=== PATIENT | female | born 1975 | race Caucasian/White ===

== ENCOUNTER 2019-03-29 20:53 | Inpatient (IN) ==
--- NOTE | 2019-03-29 21:11 | DR.GENAD ---
HPI Time Seen Time Seen by Provider: 03/29/19 21:05 Complaint/Symptoms Chief Complaint Doctors Comments: A 43 y/o female with increase somnolence, CAST. She has fever and cough. Cough dry and productive at times. There is no chills. Nurses notes reviewed Nurses Notes Review: Yes Source History Provided: Patient and Friend Timing Onset of Chief Complaint: 03/26/19 Came on: Gradually Duration How lon Duration: Days Modifying Factors Worsens:: nothing Improves:: nothing PMH PMH Past Surgical History: Yes Surgical History: Abdominal Surgery, Cholecystectomy and Ortho Surgery Social History Do you use any recreational Drugs:: No ROS Review of Systems Constitutional: Fever and Malaise Eyes: No Symptoms Reported ENTM: No Symptoms Reported Respiratoy: Productive Cough, Non-Productive Cough and Short of Breath Cardiovascular: No Symptoms Reported Gastrointestinal/Abdominal: No Symptoms Reported Genitourinary: No Symptoms Reported Neurological: No Symptoms Reported Musculoskeletal: No Symptoms Reported Integumentary: No Symptoms Reported Hematologic/Lymphatic: No Symptoms Reported Endocrine: No Symptoms Reported Psychiatric: No Symptoms Reported PE Vital Signs Vitals: Temperature 99.8 F Pulse Rate 88 Respiratory Rate 24 Blood Pressure [Right Arm] 119/60 Blood Pressure 118/76 O2 Sat by Pulse Oximetry 99 General Limitations: No Limitations General Appearance: Alert Head Head Exam: Normal Inspection, Atraumatic and Normocephalic Eyes Eye exam: Normal Appearance and EOMI ENT ENT Exam: Normal Exam, Normal Oropharynx, Mucous Membranes Moist and TM's Normal Bilaterally Neck Neck Exam: Normal Inspection, Full ROM and Trachea Midline Chest Chest Inspection: Normal Inspection and Symmetric Chest Wall Rise Respiratory Respiratory Exam: Normal Lung Sounds Bilat Cardiovascular Cardiovascular Exam: Regular Rate, Normal Rhythm, Normal Heart Sounds, +S1 and +S2 Abdominal Exam Abdominal Exam: Normal Inspection, Normal Bowel Sounds and Soft Extremities Extremities Exam: Normal Inspection and Full ROM Back Back Exam: Normal Inspection and Full ROM Neurologic Neurological Exam: Alert and Oriented X3 Psychiatric Psychiatric Exam: Normal Affect and Normal Mood Skin Skin Exam: Dry and Normal Color MDM Differential Diagnosis Differential Diagnosis: Pneumonia; Anemia COURSE Reevaluation 1st: Unchanged Education/Counseling Education/Counseling: Patient, Family, Education and Counseling Educated On: Treatment, Diagnosis, Prognosis and Needs for Follow Up ROR Labs Reviewed Laboratory Results Reviewed?: Yes Result Diagrams: 03/29/19 21:27 03/29/19 21:27 Laboratory: 03/29/19 21:39 Sputum - Expectorated Sputum - Final WBC 10.7 X10^3/uL (3.6-10.0) H 03/29/19 21: RBC 3.80 X10^6/uL (3.5-5.4) 03/29/19 21: Hgb 8.2 g/dL (12.0-16.0) L 03/29/19 21: Hct 26.3 % (36.0-47.0) L 03/29/19 21: MCV 69.2 fL (80.0-100.0) L 03/29/19 21: MCH 21.6 pg (27.0-34.0) L 03/29/19 21: MCHC 31.3 g/dL (33.0-35.0) L 03/29/19 21: RDW 19.4 % (11.6-16.5) H 03/29/19 21: Plt Count 360 X10^3/uL (150.0-450.0) 03/29/19 21: Plt Count Comment Adequate (ADEQUATE) 03/29/19 21: MPV 7.1 fL (7.4-11.0) L 03/29/19 21: Neut % (Auto) 79.4 % (42.0-75.0) H 03/29/19 21: Lymph % (Auto) 11.2 % (21.0-51.0) L 03/29/19 21: [place] % (Auto) 8.1 % (0.0-13.0) 03/29/19 21: Eos % (Auto) 0.7 % (0.9-2.9) L 03/29/19 21: Baso % (Auto) 0.6 % (0.2-1.0) 03/29/19 21: Neut # (Auto) 8.5 x10^3/uL (2.2-4.8) H 03/29/19 21: Lymph # (Auto) 1.2 X10^3/uL (1.3-2.9) L 03/29/19 21:27 [place] # (Auto) 0.9 x10^3/uL (0.3-0.8) H 03/29/19 21:27 Eos # (Auto) 0.1 x10^3/uL (0.0-0.2) 03/29/19 21:27 Baso # (Auto) 0.1 X10^3/uL (0.0-0.1) 03/29/19 21:27 Absolute Nucleated RBC 0.2 /100WBC 03/29/19 21:27 Plt Morphology Comment Normal (NORMAL) 03/29/19 21:27 RBC Morphology Abnormal (NORMAL) A 03/29/19 21:27 Hypochromasia 2+ A 03/29/19 21: Anisocytosis Slight A 03/29/19 21: Microcytosis 1+ A 03/29/19 21:27 Sample Site Rra 03/29/19 21:15 ABG pH 7.440 (7.35-7.45) 03/29/19 21:15 ABG pCO2 49.0 mmHg (35.0-45.0) H 03/29/19 21:15 ABG pO2 35.0 mmHg (80.0-100.0) L* 03/29/19 21:15 ABG HCO3 33.3 mmol/L (22-26) H* 03/29/19 21:15 ABG O2 Saturation 70.0 % (90-100) L* 03/29/19 21:15 ABG Base Excess 7.9 mmol/L (-2.0-2.0) H 03/29/19 21:15 Ramon Test Pos 03/29/19 21:15 A-a Gradient 53.0 mmHg 03/29/19 21:15 FiO2 21.0 03/29/19 21:15 Blood Gas Comments Pt toll well eb 03/29/19 21:15 Sodium 140 mmol/L (136-145) 03/29/19 21:27 Corrected Sodium 141 mmol/L (136-145) 03/29/19 21:27 Potassium 3.3 mmol/L (3.5-5.1) L 03/29/19 21:27 Chloride 101 mmol/L (98-107) 03/29/19 21:27 Carbon Dioxide 30.1 mmol/L (21-32) 03/29/19 21:27 BUN 12 mg/dL (7-18) 03/29/19 21:27 Creatinine 0.72 mg/dL (0.55-1.02) 03/29/19 21:27 Est GFR (MDRD) Af Amer > 60 (>60) 03/29/19 21:27 Est GFR (MDRD) Non-Af > 60 (>60) 03/29/19 21:27 Glucose 140 mg/dL (65-99) H 03/29/19 21:27 Calcium 7.9 mg/dL (8.5-10.1) L 03/29/19 21:27 Corrected Calcium 8.9 mg/dL (8.5-10.1) 03/29/19 21:27 Total Bilirubin 0.90 mg/dL (0.2-1.0) 03/29/19 21:27 AST 49 Units/L (15-37) H 03/29/19 21:27 ALT 32 Units/L (12-78) 03/29/19 21:27 Alkaline Phosphatase 134 Units/L (46-116) H 03/29/19 21:27 Total Protein 7.2 g/dL (6.4-8.2) 03/29/19 21:27 Albumin 2.8 g/dL (3.4-5.0) L 03/29/19 21:27 Globulin 4.4 g/dL (2.5-4.5) 03/29/19 21:27 Albumin/Globulin Ratio 0.6 Ratio (1.1-2.1) L 03/29/19 21:27 Influenza Type A (PCR) Negative (NEGATIVE) 03/29/19 21:22 Influenza Type B (PCR) Negative (NEGATIVE) 03/29/19 21:22 S. pyogenes (TEM-PCR) Not detected (NOT DETECT) 03/29/19 21:22 XRAY XRAY Interpreted by: Self XRAY Findings: b/l diffuse infiltrates Opioid Opioid Risk Tool Total: 0 Total Score Risk Category: Low Risk Copyright: Jonathon DESIR predicting aberrant behaviors Diagnosis Discharge Problem: Anemia, normocytic normochromic, Acute hypokalemia Pneumonia Qualifiers: Pneumonia type: due to unspecified organism Laterality: bilateral Lung location: unspecified part of lung Qualified Code(s): J18.9 - Pneumonia, unspecified organism Instructions Forms: Excuse From Work
[2019-03-29 21:18] LABS: ABG BASE EXCESS 7.9 mmol/L (-2.0-2.0)
[2019-03-29 21:19] LABS: ABG HCO3 33.3 mmol/L (22-26)
[2019-03-29 21:20] LABS: ABG ALLEN TEST POS
[2019-03-29] MEDS ORDERED: DUONEB 0.5 MG/3 MG ONE (21:27)
[2019-03-29] MEDS ORDERED: DUONEB 0.5 MG/3 MG NEB ONE (21:27)
[2019-03-29 21:39] LABS: BASOPHILS # (AUTO) 0.1 X10^3/uL (0.0-0.1); BASOPHILS % (AUTO) 0.6 % (0.2-1.0); EOSINOPHILS # (AUTO) 0.1 x10^3/uL (0.0-0.2); EOSINOPHILS % (AUTO) 0.7 % (0.9-2.9); HEMATOCRIT 26.3 % (36.0-47.0); HEMOGLOBIN 8.2 g/dL (12.0-16.0); LYMPHOCYTES # (AUTO) 1.2 X10^3/uL (1.3-2.9); LYMPHOCYTES % (AUTO) 11.2 % (21.0-51.0); MEAN CORPUSCULAR HEMOGLOBIN 21.6 pg (27.0-34.0); MEAN CORPUSCULAR HGB CONC 31.3 g/dL (33.0-35.0); MEAN CORPUSCULAR VOLUME 69.2 fL (80.0-100.0); MEAN PLATELET VOLUME 7.1 fL (7.4-11.0); MONOCYTES # (AUTO) 0.9 x10^3/uL (0.3-0.8); MONOCYTES % (AUTO) 8.1 % (0.0-13.0); NEUTROPHILS # (AUTO) 8.5 x10^3/uL (2.2-4.8); NEUTROPHILS % (AUTO) 79.4 % (42.0-75.0); PLATELET COUNT 360 X10^3/uL (150.0-450.0); RED CELL DISTRIBUTION WIDTH 19.4 % (11.6-16.5); WHITE BLOOD COUNT 10.7 X10^3/uL (3.6-10.0)
--- NOTE | 2019-03-29 21:48 | RAD ---
AP chest. Indication: Sick Comparison: None available Findings: There is severe multifocal airspace opacities and peribronchial thickening bilaterally. No pleural effusion or pneumothorax. Heart size is mildly enlarged. No acute osseous abnormality. Impression: Severe airspace opacities and peribronchial thickening within both lungs is most consistent with multifocal pneumonia. Reported By:
[2019-03-29 21:51] LABS: ALANINE AMINOTRANSFERASE 32 Units/L (12-78); ALBUMIN 2.8 g/dL (3.4-5.0); ALKALINE PHOSPHATASE 134 Units/L (46-116); ASPARTATE AMINO TRANSFERASE 49 Units/L (15-37); BLOOD UREA NITROGEN 12 mg/dL (7-18); CALCIUM 7.9 mg/dL (8.5-10.1); CARBON DIOXIDE 30.1 mmol/L (21-32); CHLORIDE 101 mmol/L (98-107); COR CA(FOR HYPOALB) 8.9 mg/dL (8.5-10.1); COR NA(FOR HYPERGLY) 141 mmol/L (136-145); CREATININE 0.72 mg/dL (0.55-1.02); SODIUM 140 mmol/L (136-145); TOTAL PROTEIN 7.2 g/dL (6.4-8.2); eGFR NON BLACK RACES > 60 (>60)
[2019-03-29 22:03] LABS: STREP A BY PCR NOT DETECTED (NOT DETECT)
[2019-03-29 22:03] LABS: ANISOCYTOSIS SLIGHT; HYPOCHROMASIA 2+; MICROCYTOSIS 1+; PLATELET MORPHOLOGY COMMENT NORMAL (NORMAL)
[2019-03-29] MEDS ORDERED: K-DUR TAB 20 MEQ PO ONE ×2 (22:11→22:43)
[2019-03-29] MEDS ORDERED: ZOSYN VIAL 3.375 GRAMS IV ONE ×2 (22:17→22:41)
[2019-03-29] MEDS ORDERED: NS 100 ML IV + SPIKE MINIBAG* 100 ML IV ONE (22:41)
[2019-03-29] MEDS ORDERED: NS 1000 ML 1,000 ML ONE (22:43)
[2019-03-29] MEDS: NS 1000 ML 1,000 ML IV SCH (23:09)
[2019-03-30 00:42] LABS: BILIRUBIN,URINE 1+ (NEGATIVE); BLOOD/HEMOGLOBIN,URINE 4+ (NEGATIVE); GLUCOSE, URINE NEGATIVE (NEGATIVE); KETONES,URINE 1+ (NEGATIVE); LEUKOCYTE ESTERASE ,URINE 1+ (NEGATIVE); NITRITES,URINE NEGATIVE (NEGATIVE); PROTEIN,URINE 3+ (NEGATIVE); UROBILINOGEN,URINE 4+ (NORMAL)
[2019-03-30 00:47] LABS: APPEARANCE,URINE CLEAR (CLEAR); COLOR,URINE AMBER (YELLOW)
[2019-03-30 00:48] LABS: BACTERIA,URINE NEGATIVE /HPF (NEGATIVE); SQUAMOUS EPITHELIAL CELL,UR FEW /HPF (NEGATIVE)
[2019-03-30] MEDS: TUSSIONEX PENNKINETIC SUSP PO PRN (01:01)
[2019-03-30 01:02] VITALS: BMI 29.9
[2019-03-30] MEDS: DUONEB 0.5 MG/3 MG NEB SCH ×5 (01:55→18:17)
[2019-03-30] MEDS ORDERED: NS 100 ML IV 100 ML IV ONE (05:58)
[2019-03-30] MEDS ORDERED: ZOSYN VIAL 4.5 GRAMS IV SCH (06:00)
[2019-03-30 06:02] LABS: BASOPHILS # (AUTO) 0.1 X10^3/uL (0.0-0.1); BASOPHILS % (AUTO) 0.5 % (0.2-1.0); EOSINOPHILS % (AUTO) 0.4 % (0.9-2.9); HEMATOCRIT 24.6 % (36.0-47.0); HEMOGLOBIN 7.5 g/dL (12.0-16.0); LYMPHOCYTES % (AUTO) 16.8 % (21.0-51.0); MEAN CORPUSCULAR HEMOGLOBIN 21.4 pg (27.0-34.0); MEAN CORPUSCULAR HGB CONC 30.7 g/dL (33.0-35.0); MEAN CORPUSCULAR VOLUME 69.8 fL (80.0-100.0); MEAN PLATELET VOLUME 7.1 fL (7.4-11.0); MONOCYTES # (AUTO) 1.5 x10^3/uL (0.3-0.8); MONOCYTES % (AUTO) 12.4 % (0.0-13.0); NEUTROPHILS # (AUTO) 8.5 x10^3/uL (2.2-4.8); NEUTROPHILS % (AUTO) 69.9 % (42.0-75.0); PLATELET COUNT 306 X10^3/uL (150.0-450.0); RED BLOOD COUNT 3.52 X10^6/uL (3.5-5.4); RED CELL DISTRIBUTION WIDTH 19.4 % (11.6-16.5); WHITE BLOOD COUNT 12.1 X10^3/uL (3.6-10.0)
[2019-03-30 06:12] LABS: ALANINE AMINOTRANSFERASE 32 Units/L (12-78); ALBUMIN 2.5 g/dL (3.4-5.0); ALKALINE PHOSPHATASE 122 Units/L (46-116); ASPARTATE AMINO TRANSFERASE 47 Units/L (15-37); BLOOD UREA NITROGEN 9 mg/dL (7-18); CALCIUM 7.7 mg/dL (8.5-10.1); CARBON DIOXIDE 29.8 mmol/L (21-32); CHLORIDE 103 mmol/L (98-107); COR CA(FOR HYPOALB) 8.9 mg/dL (8.5-10.1); CREATININE 0.63 mg/dL (0.55-1.02); SODIUM 139 mmol/L (136-145); TOTAL PROTEIN 6.7 g/dL (6.4-8.2); eGFR NON BLACK RACES > 60 (>60)
[2019-03-30] MEDS: NS 1000 ML 1,000 ML IV SCH ×3 (06:21→22:32)
[2019-03-30 06:37] LABS: ANISOCYTOSIS 1+; HYPOCHROMASIA 2+; MICROCYTOSIS 1+; PLATELET MORPHOLOGY COMMENT NORMAL (NORMAL)
[2019-03-30] MEDS ORDERED: MICRO K EXTEN CAP 10 MEQ PO PRN (06:41)
[2019-03-30] MEDS ORDERED: KLOR-CON PO PRN (06:41)
[2019-03-30] MEDS ORDERED: POTASSIUM CHLORIDE LIQ 20 MEQ UDC PO PRN (06:41)
[2019-03-30] MEDS ORDERED: POTASSIUM CHL 40 MEQ/NS 0.45% 500 ML IV PRN (06:41)
[2019-03-30] MEDS ORDERED: POTASSIUM CHL 60 MEQ/NS 0.45% 500 ML IV PRN (06:41)
[2019-03-30] MEDS ORDERED: K-RIDER 10 MEQ/NS 100 ML 10 MEQ/100 ML BAG IV PRN (06:41)
--- NOTE | 2019-03-30 08:33 | DR.H&P ---
H&P History & Physical for Day of: H&P Date: 03/30/19 Chief Complaint Chief Complaint: Shortness of breath Allergies Allergies Allergy/AdvReac Type Severity Reaction Status Date / Time No Known Drug Allergies Allergy Verified 12/15/18 11:43 History of Present Illness History of Present Illness: Pt is 43 yo f w/ no pmhx c/o fever, chills, shortness of breath, fatigue, night sweats x 4 days. She states that she has been feeling weak since being ill. She denies any ill contacts. She reports loss of appetite while being ill and headache. She has been taking Dayquil and Nyquil without relief. Denies abdominal pain, diarrhea. She went to work yesterday and when she got home was told by her significant other that she looked pale so she went to ED. Denies hx of GI bleed. Patient was found to be extremely hypoxic on arrival, ABG pO2 Past Medical History Past Medical History: denies Alzheimers, Anemia, Angina, Anxiety, Arthritis, Asthma, Cirrhosis, CHF, COPD, Coronary Artery Disease, CVA, Dementia, Depression, Diabetes, Dialysis, Dyslipidemia, Migraines, GERD, Gout, Headaches, Hypertension, Hyperthyroidism, Hypothyroidism, Kidney Stones, Liver Disease, LA, PUD, Renal Disease, Schizophrenia, Seizures, Sleep Apnea, SVT and Ventricular Tachycardia Past Surgical History Surgical History: Abdominal Surgery, Cholecystectomy and Ortho Surgery Family History Family Medical History: Cancer and Hypertension Social History Does patient currently use any type of tobacco product: Yes Have you used tobacco products in the last 12 months: Yes Type of Tobacco Use: Cigarettes Alcohol Use: None Drug Use: None Medications Home Medications: No Known Drug Allergies Allergy (Verified 12/15/18 11:43) CONTINUE taking the following medications NK 03/30/19 [History] Review of Systems Constitutional: Fever, Chills, Sweats and Weakness Eyes: No Symptoms Reported ENT: Nose Congestion Respiratory: Cough, Shortness of Breath, Sputum and Wheezing Cardiovascular: Light Headedness; denies No Symptoms Reported, Chest Pain, See HPI, Palpitations, Orthopnea, Paroxysmal Noc. Dyspnea, Edema and Other Gastrointestinal: Nausea; denies No Symptoms Reported, See HPI, Vomiting, Abdominal Pain, Diarrhea, Constipation, Melena, Hematochezia and Other Genitourinary: No Symptoms Reported Musculoskeletal: No Symptoms Reported Skin: No Symptoms Reported Neurological: No Symptoms Reported Physical Exam Vital Signs: Temperature 98.6 F Pulse Rate [Apical] 82 Pulse Rate 81 Respiratory Rate 20 Blood Pressure [Right Arm] 102/58 Blood Pressure 131/68 O2 Sat by Pulse Oximetry 92 Oriented: Normal Eyes: Normal Ear: Normal Nose: Normal Throat: Normal Respiratory: Rhonchi Throughout and Wheezes Throughout Cardiovascular: Normal; negative Tachycardia, Bradycardia, Irregular, S3, S4, Systolic, Diastolic, Murmur, Edema and Other : Normal Auscultation: Bowel Sounds: Normal Palpation: Normal Tenderness: Normal Skin: Normal Musculoskeletal: Normal Psychiatric: Normal Mood Description: Appropriate Affect: Normal Speech Pattern: Appropriate Assessment/Plan (1) Acute respiratory failure with hypoxia: Status: Acute (2) Multifocal pneumonia: Status: Acute Plan: continue Levaquin, Zosyn add Vancomycin for MRSA coverage follow sputum cultures - repeat CXR this AM - Duonebs , IS - titrate O2 as needed to keep sats > 92% (3) Anemia, normocytic normochromic: Status: Acute Plan: monitor CBC and signs of bleeding anemia panel FOBT (4) Acute hypokalemia: Status: Acute Plan: daily BMP replace as needed (5) Compensated metabolic alkalosis: Status: Acute
[2019-03-30] MEDS: LOVENOX INJ 40 MG SYR SC SCH (08:55)
[2019-03-30] MEDS: VSL#3 PO SCH (08:56)
[2019-03-30] MEDS: ROBITUSSIN DM PO SCH ×4 (08:56→21:14)
[2019-03-30] MEDS ORDERED: LEVAQUIN PREMIX IV 750 MG 750 MG/150 ML BAG IV SCH (09:00)
[2019-03-30] MEDS ORDERED: PHARMACY CONSULT - VANCOMYCIN XX SCH (09:00)
[2019-03-30 10:05] LABS: MYCOPLASMA PNEUMONIAE IGM AB NEGATIVE (NEGATIVE)
[2019-03-30] MEDS: TYLENOL 325 MG TAB PO PRN ×2 (10:25→22:49)
[2019-03-30] MEDS: HEMOCYTE-PLUS PO SCH (10:38)
[2019-03-30] MEDS: VANCOMYCIN HCL 1 G in NS 250 ML IV 250 ML IV SCH ×2 (13:28→21:15)
[2019-03-30] MEDS: ZOSYN VIAL 4.5 GRAMS 4.5 G in NS 100 ML IV + SPIKE MINIBAG* 100 ML IV SCH ×2 (13:31→22:32)
--- NOTE | 2019-03-30 14:07 | RAD ---
HISTORY: Shortness of breath Study: Two-view chest Comparison: 03/29/2019 Findings: The trachea is midline. The cardiac silhouette is accentuated by portable technique. Diffuse airspace opacities throughout the right and left hemithorax are observed. Slightly improved aeration is observed consistent with resolving multifocal pneumonia. The bony thorax is unremarkable. IMPRESSION: Persistent airspace opacities throughout the right and left hemithorax with improved aeration consistent with resolving bronchopneumonia. Reported By:
[2019-03-30] MEDS ORDERED: K-DUR TAB 20 MEQ PO ONE (22:11)
[2019-03-30] MEDS ORDERED: ZOSYN VIAL 3.375 GRAMS IV ONE (22:17)
[2019-03-31] MEDS: DUONEB 0.5 MG/3 MG NEB PRN ×6 (00:48→21:40)
[2019-03-31] MEDS: VANCOMYCIN HCL 1 G in NS 250 ML IV 250 ML IV SCH ×3 (05:32→21:01)
[2019-03-31] MEDS: NS 1000 ML 1,000 ML IV SCH (06:27)
[2019-03-31] MEDS: ZOSYN VIAL 4.5 GRAMS 4.5 G in NS 100 ML IV + SPIKE MINIBAG* 100 ML IV SCH ×3 (06:29→21:01)
[2019-03-31 06:30] LABS: BASOPHILS % (AUTO) 0.5 % (0.2-1.0); BLOOD UREA NITROGEN 7 mg/dL (7-18); CALCIUM 7.7 mg/dL (8.5-10.1); CHLORIDE 106 mmol/L (98-107); CREATININE 0.51 mg/dL (0.55-1.02); EOSINOPHILS # (AUTO) 0.2 x10^3/uL (0.0-0.2); EOSINOPHILS % (AUTO) 2.3 % (0.9-2.9); HEMATOCRIT 22.8 % (36.0-47.0); HEMOGLOBIN 7.2 g/dL (12.0-16.0); LYMPHOCYTES # (AUTO) 1.8 X10^3/uL (1.3-2.9); LYMPHOCYTES % (AUTO) 21.1 % (21.0-51.0); MEAN CORPUSCULAR HEMOGLOBIN 21.8 pg (27.0-34.0); MEAN CORPUSCULAR HGB CONC 31.4 g/dL (33.0-35.0); MEAN CORPUSCULAR VOLUME 69.5 fL (80.0-100.0); MEAN PLATELET VOLUME 7.2 fL (7.4-11.0); MONOCYTES # (AUTO) 0.9 x10^3/uL (0.3-0.8); MONOCYTES % (AUTO) 10.9 % (0.0-13.0); NEUTROPHILS # (AUTO) 5.5 x10^3/uL (2.2-4.8); NEUTROPHILS % (AUTO) 65.2 % (42.0-75.0); PLATELET COUNT 294 X10^3/uL (150.0-450.0); RED BLOOD COUNT 3.28 X10^6/uL (3.5-5.4); RED CELL DISTRIBUTION WIDTH 19.1 % (11.6-16.5); SODIUM 142 mmol/L (136-145); WHITE BLOOD COUNT 8.4 X10^3/uL (3.6-10.0); eGFR NON BLACK RACES > 60 (>60)
--- NOTE | 2019-03-31 06:38 | RAD ---
Examination: Portable AP chest History: SOB Comparison 03/30/2019 Findings: Continued cardiomegaly with bilateral infiltrates. There is no additional consolidation, extrapulmonary air or developing pleural effusion. Impression: Stable pulmonary infiltrates, no interval change since 1 day prior. Reported By:
[2019-03-31 06:40] LABS: ANISOCYTOSIS SLIGHT; HYPOCHROMASIA 2+; MICROCYTOSIS 1+; PLATELET MORPHOLOGY COMMENT NORMAL (NORMAL)
[2019-03-31] MEDS: K-DUR TAB 20 MEQ PO PRN ×2 (06:55→14:58)
--- NOTE | 2019-03-31 07:52 | PCM.PROG ---
Progress Note Past Medical Family Social History Allergies: Allergies No Known Drug Allergies Allergy (Verified 12/15/18 11:43) Vital Signs and I&O's Vital Signs: Temperature 98.8 F Pulse Rate [Apical] 73 Pulse Rate 90 Respiratory Rate 18 Blood Pressure [Right Arm] 109/56 Blood Pressure 131/68 O2 Sat by Pulse Oximetry 92 Intake and Output: Intake & Output 03/28/19 03/29/19 03/30/19 03/31/19 23:59 23:59 23:59 23:59 Intake Total 2500 / 2500 720 / 720 Balance 2500 / 2500 720 / 720 Physical Exam Oriented: Normal Eyes: Normal Ear: Normal Nose: Normal Throat: Normal Cardiovascular: Normal; negative Tachycardia, Bradycardia, Irregular, S3, S4, Systolic, Diastolic, Murmur, Edema and Other : Normal Auscultation: Bowel Sounds: Normal Tenderness: Normal Skin: Normal Musculoskeletal: Normal Psychiatric: Normal Mood Description: Appropriate Affect: Normal Speech Pattern: Clear and Appropriate Laboratory and Diagnostics Result Diagrams: 03/31/19 06:00 03/31/19 06:00 Labs: 03/29/19 21:39 Sputum - Expectorated Sputum - Final Laboratory WBC 8.4 X10^3/uL (3.6-10.0) 03/31/19 06:00 RBC 3.28 X10^6/uL (3.5-5.4) L 03/31/19 06:00 Hgb 7.2 g/dL (12.0-16.0) L 03/31/19 06:00 Hct 22.8 % (36.0-47.0) L 03/31/19 06:00 MCV 69.5 fL (80.0-100.0) L 03/31/19 06:00 MCH 21.8 pg (27.0-34.0) L 03/31/19 06:00 MCHC 31.4 g/dL (33.0-35.0) L 03/31/19 06:00 RDW 19.1 % (11.6-16.5) H 03/31/19 06:00 Plt Count 294 X10^3/uL (150.0-450.0) 03/31/19 06:00 Plt Count Comment Adequate (ADEQUATE) 03/31/19 06:00 MPV 7.2 fL (7.4-11.0) L 03/31/19 06:00 Neut % (Auto) 65.2 % (42.0-75.0) 03/31/19 06:00 Lymph % (Auto) 21.1 % (21.0-51.0) 03/31/19 06:00 [place] % (Auto) 10.9 % (0.0-13.0) 03/31/19 06:00 Eos % (Auto) 2.3 % (0.9-2.9) 03/31/19 06:00 Baso % (Auto) 0.5 % (0.2-1.0) 03/31/19 06:00 Neut # (Auto) 5.5 x10^3/uL (2.2-4.8) H 03/31/19 06:00 Lymph # (Auto) 1.8 X10^3/uL (1.3-2.9) 03/31/19 06:00 [place] # (Auto) 0.9 x10^3/uL (0.3-0.8) H 03/31/19 06:00 Eos # (Auto) 0.2 x10^3/uL (0.0-0.2) 03/31/19 06:00 Baso # (Auto) 0.0 X10^3/uL (0.0-0.1) 03/31/19 06:00 Absolute Nucleated RBC 0.1 /100WBC 03/31/19 06:00 Plt Morphology Comment Normal (NORMAL) 03/31/19 06:00 RBC Morphology Abnormal (NORMAL) A 03/31/19 06:00 Hypochromasia 2+ A 03/31/19 06:00 Anisocytosis Slight A 03/31/19 06:00 Microcytosis 1+ A 03/31/19 06:00 Sample Site Rra 03/29/19 21:15 ABG pH 7.440 (7.35-7.45) 03/29/19 21:15 ABG pCO2 49.0 mmHg (35.0-45.0) H 03/29/19 21:15 ABG pO2 35.0 mmHg (80.0-100.0) L* 03/29/19 21:15 ABG HCO3 33.3 mmol/L (22-26) H* 03/29/19 21:15 ABG O2 Saturation 70.0 % (90-100) L* 03/29/19 21:15 ABG Base Excess 7.9 mmol/L (-2.0-2.0) H 03/29/19 21:15 Ramon Test Pos 03/29/19 21:15 A-a Gradient 53.0 mmHg 03/29/19 21:15 FiO2 21.0 03/29/19 21:15 Blood Gas Comments Pt toll well eb 03/29/19 21:15 Sodium 142 mmol/L (136-145) 03/31/19 06:00 Corrected Sodium TNP 03/31/19 06:00 Potassium 3.4 mmol/L (3.5-5.1) L 03/31/19 06:00 Chloride 106 mmol/L (98-107) 03/31/19 06:00 Carbon Dioxide 30.0 mmol/L (21-32) 03/31/19 06:00 BUN 7 mg/dL (7-18) 03/31/19 06:00 Creatinine 0.51 mg/dL (0.55-1.02) L 03/31/19 06:00 Est GFR (MDRD) Af Amer > 60 (>60) 03/31/19 06:00 Est GFR (MDRD) Non-Af > 60 (>60) 03/31/19 06:00 Glucose 99 mg/dL (65-99) 03/31/19 06:00 Calcium 7.7 mg/dL (8.5-10.1) L 03/31/19 06:00 Corrected Calcium 8.9 mg/dL (8.5-10.1) 03/30/19 05:35 Iron 9 ug/dL (50-175) L 03/30/19 05:35 Transferrin 239 mg/dL (202-364) 03/30/19 05:35 Ferritin 103 ng/mL (8-252) 03/30/19 05:35 Total Bilirubin 0.80 mg/dL (0.2-1.0) 03/30/19 05:35 AST 47 Units/L (15-37) H 03/30/19 05:35 ALT 32 Units/L (12-78) 03/30/19 05:35 Alkaline Phosphatase 122 Units/L (46-116) H 03/30/19 05:35 Total Protein 6.7 g/dL (6.4-8.2) 03/30/19 05:35 Albumin 2.5 g/dL (3.4-5.0) L 03/30/19 05:35 Globulin 4.2 g/dL (2.5-4.5) 03/30/19 05:35 Albumin/Globulin Ratio 0.6 Ratio (1.1-2.1) L 03/30/19 05:35 Vitamin B12 316 pg/mL (193-986) 03/30/19 05:35 Folate 8.6 ng/mL (>8.6) 03/30/19 05:35 Specimen Type Clean catch urine 03/30/19 00:31 Urine Color [place]iela (YELLOW) 03/30/19 00:31 Urine Appearance Clear (CLEAR) 03/30/19 00:31 Urine pH 6.0 (5.0 - 8.0) 03/30/19 00:31 Ur Specific [place] 1.010 (1.000-1.030) 03/30/19 00:31 Urine Protein 3+ (NEGATIVE) 03/30/19 00:31 Urine Glucose (UA) Negative (NEGATIVE) 03/30/19 00: Urine Ketones 1+ (NEGATIVE) 03/30/19 00:31 Urine Occult Blood 4+ (NEGATIVE) 03/30/19 00: Urine Nitrite Negative (NEGATIVE) 03/30/19 00: Urine Bilirubin 1+ (NEGATIVE) 03/30/19 00:31 Urine Urobilinogen 4+ (NORMAL) 03/30/19 00:31 Ur Leukocyte Esterase 1+ (NEGATIVE) 03/30/19 00:31 Urine RBC 5-10 /HPF (0-3) A 03/30/19 00:31 Urine WBC 0-2 /HPF (0-5) 03/30/19 00:31 Ur Squamous Epith Cells Few /HPF (NEGATIVE) 03/30/19 00:31 Urine Bacteria Negative /HPF (NEGATIVE) 03/30/19 00:31 Ur Culture Indicated? No/not indicated 03/30/19 00:31 Influenza Type A (PCR) Negative (NEGATIVE) 03/29/19 21:22 Influenza Type B (PCR) Negative (NEGATIVE) 03/29/19 21:22 Mycoplasma pneumon IgG Negative (NEGATIVE) 03/30/19 05:35 S. pyogenes (TEM-PCR) Not detected (NOT DETECT) 03/29/19 21:22 Plan (1) Acute respiratory failure with hypoxia: Status: Acute (2) Multifocal pneumonia: Status: Acute Plan: continue Abx:Levaquin, Zosyn, Vancomycin(for MRSA coverage)(03/30) - Sputum Cx pending - CXR(03/30) - Duonebs , IS - titrate O2 as needed to keep sats > 92% (3) Anemia, normocytic normochromic: Status: Acute Plan: monitor CBC and signs of bleeding anemia panel FOBT (4) Acute hypokalemia: Status: Acute Plan: daily BMP replace as needed (5) Compensated metabolic alkalosis: Status: Acute
[2019-03-31] MEDS ORDERED: MILK OF MAGNESIA PO PRN (07:58)
[2019-03-31] MEDS: ROBITUSSIN DM PO SCH ×4 (09:19→20:53)
[2019-03-31] MEDS: VSL#3 PO SCH (09:19)
[2019-03-31] MEDS: COLACE CAP 100 MG PO SCH ×2 (09:19→20:53)
[2019-03-31] MEDS: LOVENOX INJ 40 MG SYR SC SCH (09:20)
[2019-03-31] MEDS: HEMOCYTE-PLUS PO SCH (09:20)
--- NOTE | 2019-03-31 11:39 | PCM.PROG ---
Progress Note Progress Note for Day of Date of Exam: 03/31/19 Subjective Subjective: Pt feeling a little better this morning. She says she is still coughing up sputum. Her appetite is gradually improving. No acute events overnight. Past Medical Family Social History Past Med/Fam/Surg Hx: No changes since H&P Allergies: Allergies No Known Drug Allergies Allergy (Verified 12/15/18 11:43) Review of Systems ROS: No change since H&P Vital Signs and I&O's Vital Signs: Temperature 98.2 F Pulse Rate [Apical] 88 Pulse Rate 91 Respiratory Rate 18 Blood Pressure [Right Arm] 109/59 Blood Pressure 131/68 O2 Sat by Pulse Oximetry 96 Intake and Output: Intake & Output 03/28/19 03/29/19 03/30/19 03/31/19 23:59 23:59 23:59 23:59 Intake Total 2500 / 2500 720 / 720 Balance 2500 / 2500 720 / 720 Physical Exam Oriented: Normal Eyes: Normal Ear: Normal Nose: Normal Respiratory: Wheezes and Rhonchi Cardiovascular: Normal; negative Tachycardia, Bradycardia, Irregular, S3, S4, Systolic, Diastolic, Murmur, Edema and Other Auscultation: Bowel Sounds: Normal Tenderness: Normal Skin: Normal Musculoskeletal: Normal Psychiatric: Normal Mood Description: Appropriate Affect: Normal Speech Pattern: Clear and Appropriate Laboratory and Diagnostics Result Diagrams: 03/31/19 06:00 03/31/19 10:54 Labs: 03/29/19 21:27 Blood Blood Culture - Preliminary 03/29/19 21:20 Blood Blood Culture - Preliminary 03/29/19 21:39 Sputum - Expectorated Sputum Sputum Culture - Preliminary 03/29/19 21:39 Sputum - Expectorated Sputum - Final Laboratory WBC 8.4 X10^3/uL (3.6-10.0) 03/31/19 06:00 RBC 3.28 X10^6/uL (3.5-5.4) L 03/31/19 06:00 Hgb 7.2 g/dL (12.0-16.0) L 03/31/19 06:00 Hct 22.8 % (36.0-47.0) L 03/31/19 06:00 MCV 69.5 fL (80.0-100.0) L 03/31/19 06:00 MCH 21.8 pg (27.0-34.0) L 03/31/19 06:00 MCHC 31.4 g/dL (33.0-35.0) L 03/31/19 06:00 RDW 19.1 % (11.6-16.5) H 03/31/19 06:00 Plt Count 294 X10^3/uL (150.0-450.0) 03/31/19 06:00 Plt Count Comment Adequate (ADEQUATE) 03/31/19 06:00 MPV 7.2 fL (7.4-11.0) L 03/31/19 06:00 Neut % (Auto) 65.2 % (42.0-75.0) 03/31/19 06:00 Lymph % (Auto) 21.1 % (21.0-51.0) 03/31/19 06:00 [place] % (Auto) 10.9 % (0.0-13.0) 03/31/19 06:00 Eos % (Auto) 2.3 % (0.9-2.9) 03/31/19 06:00 Baso % (Auto) 0.5 % (0.2-1.0) 03/31/19 06:00 Neut # (Auto) 5.5 x10^3/uL (2.2-4.8) H 03/31/19 06:00 Lymph # (Auto) 1.8 X10^3/uL (1.3-2.9) 03/31/19 06:00 [place] # (Auto) 0.9 x10^3/uL (0.3-0.8) H 03/31/19 06:00 Eos # (Auto) 0.2 x10^3/uL (0.0-0.2) 03/31/19 06:00 Baso # (Auto) 0.0 X10^3/uL (0.0-0.1) 03/31/19 06:00 Absolute Nucleated RBC 0.1 /100WBC 03/31/19 06:00 Plt Morphology Comment Normal (NORMAL) 03/31/19 06:00 RBC Morphology Abnormal (NORMAL) A 03/31/19 06:00 Hypochromasia 2+ A 03/31/19 06:00 Anisocytosis Slight A 03/31/19 06:00 Microcytosis 1+ A 03/31/19 06:00 Sample Site Rra 03/29/19 21:15 ABG pH 7.440 (7.35-7.45) 03/29/19 21:15 ABG pCO2 49.0 mmHg (35.0-45.0) H 03/29/19 21:15 ABG pO2 35.0 mmHg (80.0-100.0) L* 03/29/19 21:15 ABG HCO3 33.3 mmol/L (22-26) H* 03/29/19 21:15 ABG O2 Saturation 70.0 % (90-100) L* 03/29/19 21:15 ABG Base Excess 7.9 mmol/L (-2.0-2.0) H 03/29/19 21:15 Ramon Test Pos 03/29/19 21:15 A-a Gradient 53.0 mmHg 03/29/19 21:15 FiO2 21.0 03/29/19 21:15 Blood Gas Comments Pt toll well eb 03/29/19 21:15 Sodium 142 mmol/L (136-145) 03/31/19 06:00 Corrected Sodium TNP 03/31/19 06:00 Potassium 3.6 mmol/L (3.5-5.1) 03/31/19 10:54 Chloride 106 mmol/L (98-107) 03/31/19 06:00 Carbon Dioxide 30.0 mmol/L (21-32) 03/31/19 06:00 BUN 7 mg/dL (7-18) 03/31/19 06:00 Creatinine 0.51 mg/dL (0.55-1.02) L 03/31/19 06:00 Est GFR (MDRD) Af Amer > 60 (>60) 03/31/19 06:00 Est GFR (MDRD) Non-Af > 60 (>60) 03/31/19 06:00 Glucose 99 mg/dL (65-99) 03/31/19 06:00 Calcium 7.7 mg/dL (8.5-10.1) L 03/31/19 06:00 Corrected Calcium 8.9 mg/dL (8.5-10.1) 03/30/19 05:35 Iron 9 ug/dL (50-175) L 03/30/19 05:35 Transferrin 239 mg/dL (202-364) 03/30/19 05:35 Ferritin 103 ng/mL (8-252) 03/30/19 05:35 Total Bilirubin 0.80 mg/dL (0.2-1.0) 03/30/19 05:35 AST 47 Units/L (15-37) H 03/30/19 05:35 ALT 32 Units/L (12-78) 03/30/19 05:35 Alkaline Phosphatase 122 Units/L (46-116) H 03/30/19 05:35 Total Protein 6.7 g/dL (6.4-8.2) 03/30/19 05:35 Albumin 2.5 g/dL (3.4-5.0) L 03/30/19 05:35 Globulin 4.2 g/dL (2.5-4.5) 03/30/19 05:35 Albumin/Globulin Ratio 0.6 Ratio (1.1-2.1) L 03/30/19 05:35 Vitamin B12 316 pg/mL (193-986) 03/30/19 05:35 Folate 8.6 ng/mL (>8.6) 03/30/19 05:35 Specimen Type Clean catch urine 03/30/19 00:31 Urine Color Mariela (YELLOW) 03/30/19 00:31 Urine Appearance Clear (CLEAR) 03/30/19 00:31 Urine pH 6.0 (5.0 - 8.0) 03/30/19 00:31 Ur Specific [place] 1.010 (1.000-1.030) 03/30/19 00:31 Urine Protein 3+ (NEGATIVE) 03/30/19 00: Urine Glucose (UA) Negative (NEGATIVE) 03/30/19 00: Urine Ketones 1+ (NEGATIVE) 03/30/19 00: Urine Occult Blood 4+ (NEGATIVE) 03/30/19 00: Urine Nitrite Negative (NEGATIVE) 03/30/19 00: Urine Bilirubin 1+ (NEGATIVE) 03/30/19 00: Urine Urobilinogen 4+ (NORMAL) 03/30/19 00:31 Ur Leukocyte Esterase 1+ (NEGATIVE) 03/30/19 00:31 Urine RBC 5-10 /HPF (0-3) A 03/30/19 00: Urine WBC 0-2 /HPF (0-5) 03/30/19 00:31 Ur Squamous Epith Cells Few /HPF (NEGATIVE) 03/30/19 00:31 Urine Bacteria Negative /HPF (NEGATIVE) 03/30/19 00:31 Ur Culture Indicated? No/not indicated 03/30/19 00:31 Influenza Type A (PCR) Negative (NEGATIVE) 03/29/19 21:22 Influenza Type B (PCR) Negative (NEGATIVE) 03/29/19 21:22 Mycoplasma pneumon IgG Negative (NEGATIVE) 03/30/19 05:35 S. pyogenes (TEM-PCR) Not detected (NOT DETECT) 03/29/19 21:22 Radiology Reviewed: Yes Plan (1) Multifocal pneumonia: Status: Acute Plan: continue Abx:Zosyn, Vancomycin(for MRSA coverage)(03/30) - Sputum Cx pending - CXR(03/31) no change from prior. - Duonebs prn, IS - titrate O2 as needed to keep sats > 92% (2) Acute respiratory failure with hypoxia: Status: Acute (3) Anemia, normocytic normochromic: Status: Acute Plan: Anemia panel c/w HELIO, continue iron supplements. FOBT pending (4) Acute hypokalemia: Status: Acute Plan: daily BMP replace as needed, pt tolerating po diet. (5) Compensated metabolic alkalosis: Status: Resolved
[2019-03-31] MEDS ORDERED: PHARMACY COMMENT IV NR (13:30)
[2019-03-31 14:57] LABS: CREATININE 0.74 mg/dL (0.55-1.02); VANCOMYCIN,TROUGH 5.9 ug/mL (15-20)
[2019-03-31] MEDS: TUSSIONEX PENNKINETIC SUSP PO PRN (20:58)
[2019-03-31] MEDS: TYLENOL 325 MG TAB PO PRN (20:58)
[2019-04-01] MEDS ORDERED: NS 500 ML IV 500 ML IV ONE (00:29)
[2019-04-01] MEDS: DUONEB 0.5 MG/3 MG NEB PRN ×6 (01:00→20:22)
[2019-04-01] MEDS: VANCOMYCIN HCL 1 G in NS 250 ML IV 250 ML IV SCH (05:06)
[2019-04-01] MEDS: ZOSYN VIAL 4.5 GRAMS 4.5 G in NS 100 ML IV + SPIKE MINIBAG* 100 ML IV SCH (05:07)
[2019-04-01 05:40] LABS: BLOOD UREA NITROGEN 9 mg/dL (7-18); CALCIUM 7.9 mg/dL (8.5-10.1); CARBON DIOXIDE 29.1 mmol/L (21-32); CHLORIDE 105 mmol/L (98-107); CREATININE 0.58 mg/dL (0.55-1.02); SODIUM 140 mmol/L (136-145); eGFR NON BLACK RACES > 60 (>60)
[2019-04-01 05:42] LABS: BASOPHILS # (AUTO) 0.1 X10^3/uL (0.0-0.1); EOSINOPHILS # (AUTO) 0.4 x10^3/uL (0.0-0.2); EOSINOPHILS % (AUTO) 6.2 % (0.9-2.9); HEMATOCRIT 22.7 % (36.0-47.0); LYMPHOCYTES # (AUTO) 1.9 X10^3/uL (1.3-2.9); LYMPHOCYTES % (AUTO) 26.8 % (21.0-51.0); MEAN CORPUSCULAR HEMOGLOBIN 21.6 pg (27.0-34.0); MEAN CORPUSCULAR HGB CONC 30.8 g/dL (33.0-35.0); MEAN CORPUSCULAR VOLUME 70.1 fL (80.0-100.0); MEAN PLATELET VOLUME 7.6 fL (7.4-11.0); MONOCYTES # (AUTO) 0.8 x10^3/uL (0.3-0.8); MONOCYTES % (AUTO) 10.9 % (0.0-13.0); NEUTROPHILS # (AUTO) 3.9 x10^3/uL (2.2-4.8); NEUTROPHILS % (AUTO) 55.1 % (42.0-75.0); PLATELET COUNT 290 X10^3/uL (150.0-450.0); RED BLOOD COUNT 3.24 X10^6/uL (3.5-5.4); RED CELL DISTRIBUTION WIDTH 19.1 % (11.6-16.5); WHITE BLOOD COUNT 7.1 X10^3/uL (3.6-10.0)
[2019-04-01 06:16] LABS: HYPOCHROMASIA 2+; PLATELET MORPHOLOGY COMMENT NORMAL (NORMAL)
--- NOTE | 2019-04-01 07:51 | RAD ---
History: Dyspnea and respiratory distress. Exam: Single-view chest. Comparison: 03/31/2019. Findings: The trachea is midline. The cardiac silhouette remains enlarged. Diffuse airspace and interstitial densities throughout the lung johnson remain which can be seen with chronic interstitial lung disease or a diffuse, atypical, infection. Please correlate medically. The lack of effusions would argue against CHF/edema. No pneumothorax or other cardiopulmonary changes from prior are identified on the exam. The bony thorax is grossly intact. Impression: Stable chest with unchanged airspace and interstitial disease throughout the lungs. Reported By:
[2019-04-01] MEDS: LOVENOX INJ 40 MG SYR SC SCH (08:30)
[2019-04-01] MEDS: HEMOCYTE-PLUS PO SCH (08:31)
[2019-04-01] MEDS: VSL#3 PO SCH (08:31)
[2019-04-01] MEDS: COLACE CAP 100 MG PO SCH ×2 (08:31→20:14)
[2019-04-01] MEDS: ROBITUSSIN DM PO SCH ×4 (08:31→20:14)
[2019-04-01] MEDS: K-DUR TAB 20 MEQ PO PRN (09:59)
--- NOTE | 2019-04-01 10:56 | PCM.PROG ---
Progress Note Progress Note for Day of Date of Exam: 04/01/19 Subjective Subjective: Pt is feeling improved breathing from day prior. Now coughing sputum that is more clear/whitish in color. She is on 2L nc this morning. She walked on the floor yesterday with oxygen and did well. She had a bowel movement yesterday. Tolerating po. No acute events overnight. Past Medical Family Social History Past Med/Fam/Surg Hx: No changes since H&P Allergies: Allergies No Known Drug Allergies Allergy (Verified 12/15/18 11:43) Review of Systems ROS: No change since H&P Vital Signs and I&O's Vital Signs: Temperature 98.7 F Pulse Rate [Apical] 74 Pulse Rate 95 Respiratory Rate 18 Blood Pressure [Right Arm] 120/57 Blood Pressure 131/68 O2 Sat by Pulse Oximetry 97 Intake and Output: Intake & Output 03/29/19 03/30/19 03/31/19 04/01/19 23:59 23:59 23:59 23:59 Intake Total 2500 / 2500 3160 / 3160 240 / 240 Balance 2500 / 2500 3160 / 3160 240 / 240 Physical Exam Oriented: Normal Eyes: Normal Ear: Normal Nose: Normal Throat: Normal Respiratory: Rhonchi Cardiovascular: Normal; negative Tachycardia, Bradycardia, Irregular, S3, S4, Systolic, Diastolic, Murmur, Edema and Other : Normal Auscultation: Bowel Sounds: Normal Tenderness: Normal Skin: Normal Musculoskeletal: Normal Psychiatric: Normal Mood Description: Appropriate Affect: Normal Speech Pattern: Clear and Appropriate Laboratory and Diagnostics Result Diagrams: 04/01/19 04:45 04/01/19 04:45 Labs: 03/29/19 21:39 Sputum - Expectorated Sputum Sputum Culture - Final 03/29/19 21:39 Sputum - Expectorated Sputum - Final 03/29/19 21:27 Blood Blood Culture - Preliminary 03/29/19 21:20 Blood Blood Culture - Preliminary Laboratory WBC 7.1 X10^3/uL (3.6-10.0) 04/01/19 04:45 RBC 3.24 X10^6/uL (3.5-5.4) L 04/01/19 04:45 Hgb 7.0 g/dL (12.0-16.0) L 04/01/19 04:45 Hct 22.7 % (36.0-47.0) L 04/01/19 04:45 MCV 70.1 fL (80.0-100.0) L 04/01/19 04:45 MCH 21.6 pg (27.0-34.0) L 04/01/19 04:45 MCHC 30.8 g/dL (33.0-35.0) L 04/01/19 04:45 RDW 19.1 % (11.6-16.5) H 04/01/19 04:45 Plt Count 290 X10^3/uL (150.0-450.0) 04/01/19 04:45 Plt Count Comment Adequate (ADEQUATE) 04/01/19 04:45 MPV 7.6 fL (7.4-11.0) 04/01/19 04:45 Neut % (Auto) 55.1 % (42.0-75.0) 04/01/19 04:45 Lymph % (Auto) 26.8 % (21.0-51.0) 04/01/19 04:45 [place] % (Auto) 10.9 % (0.0-13.0) 04/01/19 04:45 Eos % (Auto) 6.2 % (0.9-2.9) H 04/01/19 04:45 Baso % (Auto) 1.0 % (0.2-1.0) 04/01/19 04:45 Neut # (Auto) 3.9 x10^3/uL (2.2-4.8) 04/01/19 04:45 Lymph # (Auto) 1.9 X10^3/uL (1.3-2.9) 04/01/19 04:45 [place] # (Auto) 0.8 x10^3/uL (0.3-0.8) 04/01/19 04:45 Eos # (Auto) 0.4 x10^3/uL (0.0-0.2) H 04/01/19 04:45 Baso # (Auto) 0.1 X10^3/uL (0.0-0.1) 04/01/19 04:45 Absolute Nucleated RBC 0.1 /100WBC 04/01/19 04:45 Plt Morphology Comment Normal (NORMAL) 04/01/19 04:45 RBC Morphology Abnormal (NORMAL) A 04/01/19 04:45 Hypochromasia 2+ A 04/01/19 04:45 Anisocytosis Slight A 03/31/19 06:00 Microcytosis 1+ A 03/31/19 06:00 Sample Site Rra 03/29/19 21:15 ABG pH 7.440 (7.35-7.45) 03/29/19 21:15 ABG pCO2 49.0 mmHg (35.0-45.0) H 03/29/19 21:15 ABG pO2 35.0 mmHg (80.0-100.0) L* 03/29/19 21:15 ABG HCO3 33.3 mmol/L (22-26) H* 03/29/19 21:15 ABG O2 Saturation 70.0 % (90-100) L* 03/29/19 21:15 ABG Base Excess 7.9 mmol/L (-2.0-2.0) H 03/29/19 21:15 Ramon Test Pos 03/29/19 21:15 A-a Gradient 53.0 mmHg 03/29/19 21:15 FiO2 21.0 03/29/19 21:15 Blood Gas Comments Pt toll well eb 03/29/19 21:15 Sodium 140 mmol/L (136-145) 04/01/19 04:45 Corrected Sodium TNP 04/01/19 04:45 Potassium 3.7 mmol/L (3.5-5.1) 04/01/19 04:45 Chloride 105 mmol/L (98-107) 04/01/19 04:45 Carbon Dioxide 29.1 mmol/L (21-32) 04/01/19 04:45 BUN 9 mg/dL (7-18) 04/01/19 04:45 Creatinine 0.58 mg/dL (0.55-1.02) 04/01/19 04:45 Est GFR (MDRD) Af Amer > 60 (>60) 04/01/19 04:45 Est GFR (MDRD) Non-Af > 60 (>60) 04/01/19 04:45 Glucose 87 mg/dL (65-99) 04/01/19 04:45 Calcium 7.9 mg/dL (8.5-10.1) L 04/01/19 04:45 Corrected Calcium 8.9 mg/dL (8.5-10.1) 03/30/19 05:35 Iron 9 ug/dL (50-175) L 03/30/19 05:35 Transferrin 239 mg/dL (202-364) 03/30/19 05:35 Ferritin 103 ng/mL (8-252) 03/30/19 05:35 Total Bilirubin 0.80 mg/dL (0.2-1.0) 03/30/19 05:35 AST 47 Units/L (15-37) H 03/30/19 05:35 ALT 32 Units/L (12-78) 03/30/19 05:35 Alkaline Phosphatase 122 Units/L (46-116) H 03/30/19 05:35 Total Protein 6.7 g/dL (6.4-8.2) 03/30/19 05:35 Albumin 2.5 g/dL (3.4-5.0) L 03/30/19 05:35 Globulin 4.2 g/dL (2.5-4.5) 03/30/19 05:35 Albumin/Globulin Ratio 0.6 Ratio (1.1-2.1) L 03/30/19 05:35 Vitamin B12 316 pg/mL (193-986) 03/30/19 05:35 Folate 8.6 ng/mL (>8.6) 03/30/19 05:35 Specimen Type Clean catch urine 03/30/19 00:31 Urine Color Mariela (YELLOW) 03/30/19 00:31 Urine Appearance Clear (CLEAR) 03/30/19 00:31 Urine pH 6.0 (5.0 - 8.0) 03/30/19 00:31 Ur Specific [place] 1.010 (1.000-1.030) 03/30/19 00:31 Urine Protein 3+ (NEGATIVE) 03/30/19 00:31 Urine Glucose (UA) Negative (NEGATIVE) 03/30/19 00: Urine Ketones 1+ (NEGATIVE) 03/30/19 00:31 Urine Occult Blood 4+ (NEGATIVE) 03/30/19 00:31 Urine Nitrite Negative (NEGATIVE) 03/30/19 00:31 Urine Bilirubin 1+ (NEGATIVE) 03/30/19 00:31 Urine Urobilinogen 4+ (NORMAL) 03/30/19 00:31 Ur Leukocyte Esterase 1+ (NEGATIVE) 03/30/19 00:31 Urine RBC 5-10 /HPF (0-3) A 03/30/19 00:31 Urine WBC 0-2 /HPF (0-5) 03/30/19 00:31 Ur Squamous Epith Cells Few /HPF (NEGATIVE) 03/30/19 00:31 Urine Bacteria Negative /HPF (NEGATIVE) 03/30/19 00:31 Ur Culture Indicated? No/not indicated 03/30/19 00:31 Stool Description 100g,brown,semisolid 03/31/19 11:20 Stl Occult Blood (IFOB) Positive (NEGATIVE) A 03/31/19 11:20 Vancomycin Trough 5.9 ug/mL (15-20) L 03/31/19 14:30 Influenza Type A (PCR) Negative (NEGATIVE) 03/29/19 21:22 Influenza Type B (PCR) Negative (NEGATIVE) 03/29/19 21:22 Mycoplasma pneumon IgG Negative (NEGATIVE) 03/30/19 05:35 S. pyogenes (TEM-PCR) Not detected (NOT DETECT) 03/29/19 21:22 Radiology Reviewed: Yes EKG Reviewed: N/A Plan (1) Interstitial lung disease: Status: Acute Plan: Hx of asbestos exposure and hospitalization for pneumonia in the past. CXR concerning for underlying ILD. Will get CT chest to evaluate. F/u results (2) Multifocal pneumonia: Status: Acute Plan: - SputumCx-normal rogerio. Will d/c vanc and Zosyn today, start po Levaquin. - Duonebs prn, IS - titrate O2 as needed to keep sats > 92% (3) Acute respiratory failure with hypoxia: Status: Acute (4) Anemia, normocytic normochromic: Status: Acute Plan: Anemia panel c/w HELIO, continue iron supplements. FOBT positive, hgb trending down slowly. Pt asymptomatic, refused blood transfusions at this time. Agreeable to iron transfusion, will check H/H prior. Family hx of colon cancer, will need outpt workup w/ colonoscopy. (5) Acute hypokalemia: Status: Resolved Plan: daily BMP replace as needed, pt tolerating po diet. (6) Compensated metabolic alkalosis: Status: Resolved
[2019-04-01 11:39] LABS: HEMATOCRIT 26.1 % (36.0-47.0)
[2019-04-01] MEDS: LEVAQUIN TAB 750 MG PO SCH (13:24)
[2019-04-01] MEDS ORDERED: PHARMACY CONSULT - VANCOMYCIN XX SCH (13:30)
[2019-04-01 13:57] LABS: CREATININE 0.53 mg/dL (0.55-1.02); VANCOMYCIN,TROUGH 10.3 ug/mL (15-20)
[2019-04-01] MEDS ORDERED: PHARMACY CONSULT - DOSE _____ XX SCH (16:00)
--- NOTE | 2019-04-01 17:02 | CT ---
HISTORY: Interstitial lung disease Study: CT chest without contrast Comparison: Chest radiograph dated 04/01/2019 Technique: Multiple axial images of the chest were obtained from the thoracic inlet to the upper abdomen without the administration of IV contrast. Findings: The mediastinum does not demonstrate significant pathological lymphadenopathy. There is no paracardial effusion observed. The thoracic aorta is normal in its contour without evidence for aneurysmal dilatation. Evaluation of the lung parenchyma demonstrates diffuse region of ground-glass opacification and consolidation that may be on the basis of multifocal pneumonia. The findings appear stable when compared to prior radiograph dating back to 03/29/2019. No prior radiograph ulnar this can be identified at this time. Continued evaluation will be needed if clinical symptoms and radiographic findings persist. The bony thorax is unremarkable in its appearance. The visualized portions of the upper abdomen are grossly unremarkable. IMPRESSION: Diffuse regions of ground-glass opacification and developing regions of consolidation for which multifocal pneumonia would be the primary consideration without longstanding radiograph for comparison. However, continued to complete follow-up after therapy is recommended to exclude interstitial lung disease such as cryptogenic organizing pneumonia. Reported By:
[2019-04-01] MEDS: TYLENOL 325 MG TAB PO PRN (20:14)
[2019-04-01] MEDS: TUSSIONEX PENNKINETIC SUSP PO PRN (20:14)
[2019-04-02] MEDS: DUONEB 0.5 MG/3 MG NEB PRN ×7 (01:03→20:38)
[2019-04-02] MEDS: TYLENOL 325 MG TAB PO PRN ×2 (04:50→22:02)
[2019-04-02 04:54] LABS: BASOPHILS # (AUTO) 0.1 X10^3/uL (0.0-0.1); BASOPHILS % (AUTO) 0.8 % (0.2-1.0); EOSINOPHILS # (AUTO) 0.5 x10^3/uL (0.0-0.2); EOSINOPHILS % (AUTO) 5.7 % (0.9-2.9); HEMATOCRIT 22.9 % (36.0-47.0); HEMOGLOBIN 7.2 g/dL (12.0-16.0); LYMPHOCYTES % (AUTO) 22.4 % (21.0-51.0); MEAN CORPUSCULAR HEMOGLOBIN 21.7 pg (27.0-34.0); MEAN CORPUSCULAR HGB CONC 31.5 g/dL (33.0-35.0); MEAN CORPUSCULAR VOLUME 68.8 fL (80.0-100.0); MEAN PLATELET VOLUME 7.4 fL (7.4-11.0); MONOCYTES # (AUTO) 0.8 x10^3/uL (0.3-0.8); MONOCYTES % (AUTO) 8.8 % (0.0-13.0); NEUTROPHILS # (AUTO) 5.5 x10^3/uL (2.2-4.8); NEUTROPHILS % (AUTO) 62.3 % (42.0-75.0); PLATELET COUNT 362 X10^3/uL (150.0-450.0); RED BLOOD COUNT 3.32 X10^6/uL (3.5-5.4); WHITE BLOOD COUNT 8.9 X10^3/uL (3.6-10.0)
[2019-04-02 05:08] LABS: BLOOD UREA NITROGEN 9 mg/dL (7-18); CALCIUM 8.6 mg/dL (8.5-10.1); CARBON DIOXIDE 28.1 mmol/L (21-32); CHLORIDE 103 mmol/L (98-107); CREATININE 0.56 mg/dL (0.55-1.02); SODIUM 139 mmol/L (136-145); eGFR NON BLACK RACES > 60 (>60)
[2019-04-02 05:27] LABS: HYPOCHROMASIA 2+; MICROCYTOSIS 1+; PLATELET MORPHOLOGY COMMENT NORMAL (NORMAL); TARGET CELLS PRESENT
[2019-04-02] MEDS: HEMOCYTE-PLUS PO SCH (08:20)
[2019-04-02] MEDS: COLACE CAP 100 MG PO SCH ×2 (08:20→22:02)
[2019-04-02] MEDS: LEVAQUIN TAB 750 MG PO SCH (08:20)
[2019-04-02] MEDS: ROBITUSSIN DM PO SCH ×4 (08:20→22:02)
[2019-04-02] MEDS ORDERED: NS 100 ML IV 100 ML with VENOFER 400 MG IV NR ×2 (09:00)
[2019-04-02] MEDS: VSL#3 PO SCH (09:29)
--- NOTE | 2019-04-02 09:48 | PCM.PROG ---
Progress Note Progress Note for Day of Date of Exam: 04/02/19 Subjective Subjective: Pt states she is doing better this morning. She states yesterday she was able to walk on the floor with her O2. She is still having some productive coughing. She is on 2L nc this morning. She had a bowel movement yesterday. Tolerating po. No acute events overnight. Past Medical Family Social History Past Med/Fam/Surg Hx: No changes since H&P Allergies: Allergies No Known Drug Allergies Allergy (Verified 12/15/18 11:43) Review of Systems ROS: No change since H&P Vital Signs and I&O's Vital Signs: Temperature 98.5 F Pulse Rate [Apical] 74 Pulse Rate 69 Respiratory Rate 18 Blood Pressure [Left Arm] 111/66 Blood Pressure [Right Arm] 129/63 Blood Pressure 131/68 O2 Sat by Pulse Oximetry 95 Intake and Output: Intake & Output 03/30/19 03/31/19 04/01/19 04/02/19 23:59 23:59 23:59 23:59 Intake Total 2500 / 2500 3160 / 3160 2570 / 2570 300 / 300 Balance 2500 / 2500 3160 / 3160 2570 / 2570 300 / 300 Physical Exam Oriented: Normal Eyes: Normal Ear: Normal Nose: Normal Throat: Normal Respiratory: Wheezes (mild b/l end expiratory ) and Rhonchi Cardiovascular: Normal; negative Tachycardia, Bradycardia, Irregular, S3, S4, Systolic, Diastolic, Murmur, Edema and Other : Normal Auscultation: Bowel Sounds: Normal Tenderness: Normal Skin: Normal Musculoskeletal: Normal Psychiatric: Normal Mood Description: Appropriate Affect: Normal Speech Pattern: Clear and Appropriate Laboratory and Diagnostics Result Diagrams: 04/02/19 04:30 04/02/19 04:30 Labs: 03/29/19 21:39 Sputum - Expectorated Sputum Sputum Culture - Final 03/29/19 21:39 Sputum - Expectorated Sputum - Final 03/29/19 21:27 Blood Blood Culture - Preliminary 03/29/19 21:20 Blood Blood Culture - Preliminary Laboratory WBC 8.9 X10^3/uL (3.6-10.0) 04/02/19 04:30 RBC 3.32 X10^6/uL (3.5-5.4) L 04/02/19 04:30 Hgb 7.2 g/dL (12.0-16.0) L 04/02/19 04:30 Hct 22.9 % (36.0-47.0) L 04/02/19 04:30 MCV 68.8 fL (80.0-100.0) L 04/02/19 04:30 MCH 21.7 pg (27.0-34.0) L 04/02/19 04:30 MCHC 31.5 g/dL (33.0-35.0) L 04/02/19 04:30 RDW 19.0 % (11.6-16.5) H 04/02/19 04:30 Plt Count 362 X10^3/uL (150.0-450.0) 04/02/19 04:30 Plt Count Comment Adequate (ADEQUATE) 04/02/19 04:30 MPV 7.4 fL (7.4-11.0) 04/02/19 04:30 Neut % (Auto) 62.3 % (42.0-75.0) 04/02/19 04:30 Lymph % (Auto) 22.4 % (21.0-51.0) 04/02/19 04:30 [place] % (Auto) 8.8 % (0.0-13.0) 04/02/19 04:30 Eos % (Auto) 5.7 % (0.9-2.9) H 04/02/19 04:30 Baso % (Auto) 0.8 % (0.2-1.0) 04/02/19 04:30 Neut # (Auto) 5.5 x10^3/uL (2.2-4.8) H 04/02/19 04:30 Lymph # (Auto) 2.0 X10^3/uL (1.3-2.9) 04/02/19 04:30 [place] # (Auto) 0.8 x10^3/uL (0.3-0.8) 04/02/19 04:30 Eos # (Auto) 0.5 x10^3/uL (0.0-0.2) H 04/02/19 04:30 Baso # (Auto) 0.1 X10^3/uL (0.0-0.1) 04/02/19 04:30 Absolute Nucleated RBC 0.1 /100WBC 04/02/19 04:30 Plt Morphology Comment Normal (NORMAL) 04/02/19 04:30 RBC Morphology Abnormal (NORMAL) A 04/02/19 04:30 Hypochromasia 2+ A 04/02/19 04:30 Anisocytosis Slight A 03/31/19 06:00 Microcytosis 1+ A 04/02/19 04:30 Target Cells Present 04/02/19 04:30 Sample Site Rra 03/29/19 21:15 ABG pH 7.440 (7.35-7.45) 03/29/19 21:15 ABG pCO2 49.0 mmHg (35.0-45.0) H 03/29/19 21:15 ABG pO2 35.0 mmHg (80.0-100.0) L* 03/29/19 21:15 ABG HCO3 33.3 mmol/L (22-26) H* 03/29/19 21:15 ABG O2 Saturation 70.0 % (90-100) L* 03/29/19 21:15 ABG Base Excess 7.9 mmol/L (-2.0-2.0) H 03/29/19 21:15 Ramon Test Pos 03/29/19 21:15 A-a Gradient 53.0 mmHg 03/29/19 21:15 FiO2 21.0 03/29/19 21:15 Blood Gas Comments Pt toll well eb 03/29/19 21:15 Sodium 139 mmol/L (136-145) 04/02/19 04:30 Corrected Sodium TNP 04/02/19 04:30 Potassium 4.0 mmol/L (3.5-5.1) 04/02/19 04:30 Chloride 103 mmol/L (98-107) 04/02/19 04:30 Carbon Dioxide 28.1 mmol/L (21-32) 04/02/19 04:30 BUN 9 mg/dL (7-18) 04/02/19 04:30 Creatinine 0.56 mg/dL (0.55-1.02) 04/02/19 04:30 Est GFR (MDRD) Af Amer > 60 (>60) 04/02/19 04:30 Est GFR (MDRD) Non-Af > 60 (>60) 04/02/19 04:30 Glucose 93 mg/dL (65-99) 04/02/19 04:30 Calcium 8.6 mg/dL (8.5-10.1) 04/02/19 04:30 Corrected Calcium 8.9 mg/dL (8.5-10.1) 03/30/19 05:35 Iron 9 ug/dL (50-175) L 03/30/19 05:35 Transferrin 239 mg/dL (202-364) 03/30/19 05:35 Ferritin 103 ng/mL (8-252) 03/30/19 05:35 Total Bilirubin 0.80 mg/dL (0.2-1.0) 03/30/19 05:35 AST 47 Units/L (15-37) H 03/30/19 05:35 ALT 32 Units/L (12-78) 03/30/19 05:35 Alkaline Phosphatase 122 Units/L (46-116) H 03/30/19 05:35 Total Protein 6.7 g/dL (6.4-8.2) 03/30/19 05:35 Albumin 2.5 g/dL (3.4-5.0) L 03/30/19 05:35 Globulin 4.2 g/dL (2.5-4.5) 03/30/19 05:35 Albumin/Globulin Ratio 0.6 Ratio (1.1-2.1) L 03/30/19 05:35 Vitamin B12 316 pg/mL (193-986) 03/30/19 05:35 Folate 8.6 ng/mL (>8.6) 03/30/19 05:35 Specimen Type Clean catch urine 03/30/19 00:31 Urine Color Mariela (YELLOW) 03/30/19 00:31 Urine Appearance Clear (CLEAR) 03/30/19 00:31 Urine pH 6.0 (5.0 - 8.0) 03/30/19 00:31 Ur Specific [place] 1.010 (1.000-1.030) 03/30/19 00:31 Urine Protein 3+ (NEGATIVE) 03/30/19 00:31 Urine Glucose (UA) Negative (NEGATIVE) 03/30/19 00:31 Urine Ketones 1+ (NEGATIVE) 03/30/19 00:31 Urine Occult Blood 4+ (NEGATIVE) 03/30/19 00:31 Urine Nitrite Negative (NEGATIVE) 03/30/19 00:31 Urine Bilirubin 1+ (NEGATIVE) 03/30/19 00:31 Urine Urobilinogen 4+ (NORMAL) 03/30/19 00:31 Ur Leukocyte Esterase 1+ (NEGATIVE) 03/30/19 00:31 Urine RBC 5-10 /HPF (0-3) A 03/30/19 00:31 Urine WBC 0-2 /HPF (0-5) 03/30/19 00:31 Ur Squamous Epith Cells Few /HPF (NEGATIVE) 03/30/19 00:31 Urine Bacteria Negative /HPF (NEGATIVE) 03/30/19 00:31 Ur Culture Indicated? No/not indicated 03/30/19 00:31 Stool Description 100g,brown,semisolid 03/31/19 11:20 Stl Occult Blood (IFOB) Positive (NEGATIVE) A 03/31/19 11:20 Vancomycin Trough 10.3 ug/mL (15-20) L 04/01/19 13:18 Influenza Type A (PCR) Negative (NEGATIVE) 03/29/19 21:22 Influenza Type B (PCR) Negative (NEGATIVE) 03/29/19 21:22 Mycoplasma pneumon IgG Negative (NEGATIVE) 03/30/19 05:35 S. pyogenes (TEM-PCR) Not detected (NOT DETECT) 03/29/19 21:22 Radiology Reviewed: Yes Plan (1) Interstitial lung disease: Status: Acute Plan: Hx of asbestos exposure and hospitalization for pneumonia in the past. CT Chest-Diffuse regions of ground-glass opacification and developing regions of consolidation for which multifocal pneumonia would be the primary consideration without longstanding radiograph for comparison. However, follow-up after therapy is recommended to exclude interstitial lung disease such as cryptogenic organizing pneumonia. -Sx and including hx of smoking will start prednisone 40mg x 5d(04/02). -Will likely need repeat CXR outpt for follow up. (2) Multifocal pneumonia: Status: Acute Plan: - SputumCx-normal rogerio. - Abx:Vanc and Zosyn dc'd(04/01), Levaquin x7days(04/01) - Duonebs prn, IS - titrate O2 as needed to keep sats > 92% - Will attempt to wean off supplemental o2, obtain ambulatory O2. (3) Acute respiratory failure with hypoxia: Status: Acute (4) Anemia, normocytic normochromic: Status: Acute Plan: Anemia panel c/w HELIO, continue iron supplements. FOBT positive, hgb stable, will get venofer inf today. Asymptomatic, Family hx of colon cancer, will need outpt workup w/ colonoscopy. GI consult ordered (5) Acute hypokalemia: Status: Resolved Plan: daily BMP replace as needed, pt tolerating po diet. (6) Compensated metabolic alkalosis: Status: Resolved
[2019-04-02] MEDS: PREDNISONE TAB 20 MG PO SCH (11:37)
[2019-04-02] MEDS: TUSSIONEX PENNKINETIC SUSP PO PRN (22:03)
[2019-04-03] MEDS: DUONEB 0.5 MG/3 MG NEB PRN ×3 (00:54→08:45)
[2019-04-03 05:02] LABS: HEMATOCRIT 26.8 % (36.0-47.0)
[2019-04-03] MEDS: VSL#3 PO SCH (08:35)
[2019-04-03] MEDS: ROBITUSSIN DM PO SCH (08:35)
[2019-04-03] MEDS: COLACE CAP 100 MG PO SCH (08:36)
[2019-04-03] MEDS: PREDNISONE TAB 20 MG PO SCH (08:37)
[2019-04-03] MEDS: LEVAQUIN TAB 750 MG PO SCH (08:38)
[2019-04-03] MEDS ORDERED: HEMOCYTE-PLUS PO SCH (09:00)
--- NOTE | 2019-04-03 09:13 | PCM.DCPLAN ---
DISCHARGE SUMMARY Admission Date Date of Admission: 03/29/19 Discharge Date Discharge Date: 04/03/19 Admission Diagnoses (1) Interstitial lung disease: Status: Acute (2) Multifocal pneumonia: Status: Acute (3) Acute respiratory failure with hypoxia: Status: Acute (4) Anemia, normocytic normochromic: Status: Acute (5) Acute hypokalemia: Status: Resolved (6) Compensated metabolic alkalosis: Status: Resolved Discharge Diagnoses Discharge Diagnosis: See discharged problem list Discharge Medications Discharge Medications: Home Medication List NK 03/30/19 [History] albuterol sulfate 1 puff IN Q4-6H PRN #18 g 04/03/19 [Rx] docusate sodium 100 mg PO PRN 30 Days #30 cap 04/03/19 [Rx] ferrous sulfate 325 mg PO BID #60 tab 04/03/19 [Rx] levofloxacin 750 mg PO DAILY 4 Days #4 tab 04/03/19 [Rx] prednisone 40 mg PO DAILY 3 Days #6 tab 04/03/19 [Rx] Prescriptions: albuterol sulfate Tarik,Glen docusate sodium Tarik,Glen ferrous sulfate Tarik,Glen levofloxacin Tarik,Glen prednisone Tarik,Glen Hospital Course Vital Signs: Temperature 97.6 F Pulse Rate [Apical] 80 Pulse Rate 72 Respiratory Rate 20 Blood Pressure [Left Arm] 127/60 Blood Pressure [Right Arm] 129/63 Blood Pressure 131/68 O2 Sat by Pulse Oximetry 95 Latest Lab Results: Laboratory Last Values WBC 8.9 X10^3/uL (3.6-10.0) 04/02/19 04:30 RBC 3.32 X10^6/uL (3.5-5.4) L 04/02/19 04:30 Hgb 8.0 g/dL (12.0-16.0) L 04/03/19 04:28 Hct 26.8 % (36.0-47.0) L 04/03/19 04:28 MCV 68.8 fL (80.0-100.0) L 04/02/19 04:30 MCH 21.7 pg (27.0-34.0) L 04/02/19 04:30 MCHC 31.5 g/dL (33.0-35.0) L 04/02/19 04:30 RDW 19.0 % (11.6-16.5) H 04/02/19 04:30 Plt Count 362 X10^3/uL (150.0-450.0) 04/02/19 04:30 Plt Count Comment Adequate (ADEQUATE) 04/02/19 04:30 MPV 7.4 fL (7.4-11.0) 04/02/19 04:30 Neut % (Auto) 62.3 % (42.0-75.0) 04/02/19 04:30 Lymph % (Auto) 22.4 % (21.0-51.0) 04/02/19 04:30 [place] % (Auto) 8.8 % (0.0-13.0) 04/02/19 04:30 Eos % (Auto) 5.7 % (0.9-2.9) H 04/02/19 04:30 Baso % (Auto) 0.8 % (0.2-1.0) 04/02/19 04:30 Neut # (Auto) 5.5 x10^3/uL (2.2-4.8) H 04/02/19 04:30 Lymph # (Auto) 2.0 X10^3/uL (1.3-2.9) 04/02/19 04:30 [place] # (Auto) 0.8 x10^3/uL (0.3-0.8) 04/02/19 04:30 Eos # (Auto) 0.5 x10^3/uL (0.0-0.2) H 04/02/19 04:30 Baso # (Auto) 0.1 X10^3/uL (0.0-0.1) 04/02/19 04:30 Absolute Nucleated RBC 0.1 /100WBC 04/02/19 04:30 Plt Morphology Comment Normal (NORMAL) 04/02/19 04:30 RBC Morphology Abnormal (NORMAL) A 04/02/19 04:30 Hypochromasia 2+ A 04/02/19 04:30 Anisocytosis Slight A 03/31/19 06:00 Microcytosis 1+ A 04/02/19 04:30 Target Cells Present 04/02/19 04:30 Sample Site Rra 03/29/19 21:15 ABG pH 7.440 (7.35-7.45) 03/29/19 21:15 ABG pCO2 49.0 mmHg (35.0-45.0) H 03/29/19 21:15 ABG pO2 35.0 mmHg (80.0-100.0) L* 03/29/19 21:15 ABG HCO3 33.3 mmol/L (22-26) H* 03/29/19 21:15 ABG O2 Saturation 70.0 % (90-100) L* 03/29/19 21:15 ABG Base Excess 7.9 mmol/L (-2.0-2.0) H 03/29/19 21:15 Ramon Test Pos 03/29/19 21:15 A-a Gradient 53.0 mmHg 03/29/19 21:15 FiO2 21.0 03/29/19 21:15 Blood Gas Comments Pt toll well eb 03/29/19 21:15 Sodium 139 mmol/L (136-145) 04/02/19 04:30 Corrected Sodium TNP 04/02/19 04:30 Potassium 4.0 mmol/L (3.5-5.1) 04/02/19 04:30 Chloride 103 mmol/L (98-107) 04/02/19 04:30 Carbon Dioxide 28.1 mmol/L (21-32) 04/02/19 04:30 BUN 9 mg/dL (7-18) 04/02/19 04:30 Creatinine 0.56 mg/dL (0.55-1.02) 04/02/19 04:30 Est GFR (MDRD) Af Amer > 60 (>60) 04/02/19 04:30 Est GFR (MDRD) Non-Af > 60 (>60) 04/02/19 04:30 Glucose 93 mg/dL (65-99) 04/02/19 04:30 Calcium 8.6 mg/dL (8.5-10.1) 04/02/19 04:30 Corrected Calcium 8.9 mg/dL (8.5-10.1) 03/30/19 05:35 Iron 9 ug/dL (50-175) L 03/30/19 05:35 Transferrin 239 mg/dL (202-364) 03/30/19 05:35 Ferritin 103 ng/mL (8-252) 03/30/19 05:35 Total Bilirubin 0.80 mg/dL (0.2-1.0) 03/30/19 05:35 AST 47 Units/L (15-37) H 03/30/19 05:35 ALT 32 Units/L (12-78) 03/30/19 05:35 Alkaline Phosphatase 122 Units/L (46-116) H 03/30/19 05:35 Total Protein 6.7 g/dL (6.4-8.2) 03/30/19 05:35 Albumin 2.5 g/dL (3.4-5.0) L 03/30/19 05:35 Globulin 4.2 g/dL (2.5-4.5) 03/30/19 05:35 Albumin/Globulin Ratio 0.6 Ratio (1.1-2.1) L 03/30/19 05:35 Vitamin B12 316 pg/mL (193-986) 03/30/19 05:35 Folate 8.6 ng/mL (>8.6) 03/30/19 05:35 Specimen Type Clean catch urine 03/30/19 00:31 Urine Color Mariela (YELLOW) 03/30/19 00:31 Urine Appearance Clear (CLEAR) 03/30/19 00:31 Urine pH 6.0 (5.0 - 8.0) 03/30/19 00:31 Ur Specific [place] 1.010 (1.000-1.030) 03/30/19 00:31 Urine Protein 3+ (NEGATIVE) 03/30/19 00:31 Urine Glucose (UA) Negative (NEGATIVE) 03/30/19 00: Urine Ketones 1+ (NEGATIVE) 03/30/19 00: Urine Occult Blood 4+ (NEGATIVE) 03/30/19 00: Urine Nitrite Negative (NEGATIVE) 03/30/19 00: Urine Bilirubin 1+ (NEGATIVE) 03/30/19 00:31 Urine Urobilinogen 4+ (NORMAL) 03/30/19 00:31 Ur Leukocyte Esterase 1+ (NEGATIVE) 03/30/19 00:31 Urine RBC 5-10 /HPF (0-3) A 03/30/19 00:31 Urine WBC 0-2 /HPF (0-5) 03/30/19 00:31 Ur Squamous Epith Cells Few /HPF (NEGATIVE) 03/30/19 00:31 Urine Bacteria Negative /HPF (NEGATIVE) 03/30/19 00:31 Ur Culture Indicated? No/not indicated 03/30/19 00:31 Stool Description 100g,brown,semisolid 03/31/19 11:20 Stl Occult Blood (IFOB) Positive (NEGATIVE) A 03/31/19 11:20 Vancomycin Trough 10.3 ug/mL (15-20) L 04/01/19 13:18 Influenza Type A (PCR) Negative (NEGATIVE) 03/29/19 21:22 Influenza Type B (PCR) Negative (NEGATIVE) 03/29/19 21:22 Mycoplasma pneumon IgG Negative (NEGATIVE) 03/30/19 05:35 S. pyogenes (TEM-PCR) Not detected (NOT DETECT) 03/29/19 21:22 Hospital Course: Pt is a 43yo f who was admitted for acute respiratory failure. Imaging confirmed multifocal pneumonia, sputum cx normal rogerio. She received IV abx of vanc, zosyn, and levaquin that was based on cultures de-esclated to po levaquin. She initially required supplemental oxygen that was weaned down to room air on discharge. 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 She does have hx of asbestos exposure and smoking hx. May need to consider PFTs on outpt. During hospital course her labs indicated iron deficiency anemia, her hemeoccult was positive, and she reported a family hx of colon cancer. She received iron transfusion while inpatient and her hemoglobin remained stable at Hgb 8. She responded well to treatments and was discharged on po levaquin, short prednisone course, albuterol inh prn, and iron supplements. S he was referred for outpatient GI follow up with Dr Mejia and follow up w/ pcp in 1 week. Instructions Instructions: Steps to Quit Smoking, [place] Hypoxia Fever, Adult Anemia How to Use a Nebulizer, Adult Community-Acquired Pneumonia, Adult Forms: Excuse From Work Patient Portal
[2019-04-03 10:22] VITALS: BP 110/55
== END 2019-04-03 09:20 | disposition home or self-care (01) | DRG 196 ==
LOC: ER 20:54 → MED/SURG 22:51
PROVIDERS: ADMIT Family Medicine; ATTEND Family Medicine
DX: J84.9 Interstitial pulmonary disease, unspecified; E87.3 Alkalosis; D64.9 Anemia, unspecified; E87.6 Hypokalemia; J96.01 Acute respiratory failure with hypoxia
CPT/HCPCS: 36415; 36600; 71010; 71020; 71045; 71046; 71250; 80048; 80053; 80202; 81001; 82270; 82565; 82607; 82728; 82746; 82803; 83540; 84132; 84466; 85014; 85018; 85025; 86738; 87040; 87070; 87205; 87502; 87651; 94640; 94760; 96365; 96374; 99284; A4222; J1650; J1756; J2543; J3370; J3490; J7030; J7040; J7050; J7512; J7620